=== PATIENT | male | born 1960 | race Caucasian/White ===

== ENCOUNTER → 2019-08-07 | Outpatient (CLI) | payer BC ==
[~2019-08-07] MED LIST: AMARYL1 MG PO; AMOXICILLIN 8751 TAB PO; BACTRIM DS 8001 TAB PO; CETIRIZINE; FLAGYL500 MG PO; MOTRIN800 MG PO; NORCO 325 MG-51 TAB PO; PERCOCET 325 MG1 TA2 PO; TYLENOL 325MG325 MG PO; ZYVOX 600MG600 MG PO
== END ==
LOC: COL.RAD 08-06 08:15
DX: M51.16 Intervertebral disc disorders with radiculopathy, lumbar region (principal); M47.27 Other spondylosis with radiculopathy, lumbosacral region; M43.17 Spondylolisthesis, lumbosacral region; M46.86 Other specified inflammatory spondylopathies, lumbar region; M48.061 Spinal stenosis, lumbar region without neurogenic claudication

== ENCOUNTER → 2019-08-14 | Outpatient (CLI) | payer BC ==
[~2019-08-14] MED LIST changes: +COZAAR100 MG PO; +HYZAAR 25 MG-101 TAB PO; +MUCINEX D 12001 TER PO
[2019-08-14 12:18] VITALS: BP 129/83; PULSE 102
[2019-08-14 13:10] VITALS: BP 141/83; PULSE 94
--- NOTE | 2019-08-14 13:30 | NUR ---
pt states no pain or numbness. we went over dc information and pt verbalized understanding. given a copy of same. taken to [facility] in wheelchair.
== END ==
LOC: COL.RAD 11:45
DX: M51.26 Other intervertebral disc displacement, lumbar region (principal)
CPT/HCPCS: J3301

== ENCOUNTER 2019-09-15 16:12 | Emergency (ER) | payer BC ==
[~2019-09-15] VITALS: Ht 190.5 cm; Wt 132.3 kg
[2019-09-15 16:22] VITALS: BP 147/83; TEMP 98.5
[2019-09-15] MEDS ORDERED: JANUVIA50 MG PO (16:55)
[2019-09-15 17:08] LABS: BASO % 0.4 % (0.0-2.0); EOS # 0.1 (0.0-0.7); EOS % 1.8 % (0-4.0); GRAN # 3.7 (1.4-6.5); GRAN % 66.3 % (42.2-75.2); HEMOGLOBIN 10.5 g/dl (13.5-18.0); LYMPH # 1.4 (1.2-3.4); LYMPH % 25.4 % (20.0-51.0); MEAN CELL VOLUME 89 fl (80.0-100.0); MEAN CORPUSCULAR HEMOGLOBIN 29 pg (27.0-31.0); MEAN CORPUSCULAR HGB CONC 33 g/dl (33.0-37.0); MEAN PLATELET VOLUME 9.6 fl (7.4-10.4); MONO # 0.3 (0.1-0.6); MONO % 5.4 % (1.7-9.3); PLATELET COUNT 109 K/mm3 (130-400); RED BLOOD COUNT 3.63 M/mm3 (4.20-5.60); REDCELL DISTRIBUTION WIDTH-CV 14.9 % (11.5-14.5)
[2019-09-15 17:09] LABS: HEMATOCRIT 32.3 % (42.0-52.0)
[2019-09-15 17:13] LABS: INR 1.2 (0.8-3.0); PROTHROMBIN TIME 13.3 SECONDS (9.7-12.8)
[2019-09-15 17:16] LABS: PARTIAL THROMBOPLASTIN TIME 41.7 SECONDS (26.0-37.0)
[2019-09-15 17:21] LABS: ALBUMIN 3.7 gm/dL (3.5-5.0); BILIRUBIN,TOTAL 0.9 mg/dL (0.0-1.0); C-REACTIVE PROTEIN 1.4 mg/dL (0.0-0.9); CALCIUM 8.6 mg/dL (8.4-10.2); CREATININE, serum 1.05 (0.66-1.25); POTASSIUM 4.2 mmol/L (3.4-5.0); TOTAL PROTEIN 6.8 gm/dL (6.4-8.2)
[2019-09-15] MEDS ORDERED: COZAAR100 MG PO (17:55)
[2019-09-15] MEDS ORDERED: ADVIL200 MG PO (17:58)
[2019-09-15] MEDS ORDERED: JANUMET 500 MG-1 TA1 PO (17:58)
[2019-09-15] MEDS ORDERED: HCTZ 25MG TAB25 MG PO (18:02)
[2019-09-15 18:15] VITALS: PULSE 94
== END 2019-09-15 18:16 | disposition home or self-care (01) ==
LOC: COL.ER 16:12
PROVIDERS: Emergency Medicine
DX: R60.0 Localized edema (principal); I10 Essential (primary) hypertension; G89.29 Other chronic pain; M54.9 Dorsalgia, unspecified; Z79.899 Other long term (current) drug therapy

== ENCOUNTER 2020-03-21 19:20 | Emergency (ER) | payer BC ==
[~2020-03-21] VITALS: Ht 190.5 cm; Wt 124.5 kg
[~2020-03-21 19:20] MED LIST changes: +ADVIL200 MG PO; +HCTZ 25MG TAB25 MG PO; +JANUMET 500 MG-1 TA1 PO; +JANUVIA50 MG PO
[2020-03-21 19:44] VITALS: TEMP 97.8
[2020-03-21 20:21] LABS: COLLECTION METHOD CLEAN CATCH
[2020-03-21 20:25] LABS: BASO % 0.3 % (0.0-2.0); EOS # 0.2 (0.0-0.7); EOS % 1.4 % (0-4.0); GRAN # 8.7 (1.4-6.5); GRAN % 74.6 % (42.2-75.2); HEMOGLOBIN 14.2 g/dl (13.5-18.0); LYMPH # 1.9 (1.2-3.4); LYMPH % 16.4 % (20.0-51.0); MEAN CELL VOLUME 88 fl (80.0-100.0); MEAN CORPUSCULAR HEMOGLOBIN 30 pg (27.0-31.0); MEAN CORPUSCULAR HGB CONC 34 g/dl (33.0-37.0); MEAN PLATELET VOLUME 9.2 fl (7.4-10.4); MONO # 0.8 (0.1-0.6); MONO % 6.5 % (1.7-9.3); PLATELET COUNT 144 K/mm3 (130-400); RED BLOOD COUNT 4.76 M/mm3 (4.20-5.60); REDCELL DISTRIBUTION WIDTH-CV 13.9 % (11.5-14.5)
[2020-03-21 20:29] LABS: PH 5 (5-8); SQUAMOUS EPITHELIAL 0-2 /hpf; URINE APPEARANCE Clear; URINE BACTERIA None Seen /hpf; URINE BILIRUBIN Negative (NEGATIVE); URINE BLOOD 2+ (NEGATIVE); URINE COLOR Yellow; URINE GLUCOSE Negative (NEGATIVE); URINE KETONE Negative (NEGATIVE); URINE LEUKOCYTE ESTERASE Negative (NEGATIVE); URINE NITRATE Negative (NEGATIVE); URINE PROTEIN(semi-quant) Negative (NEGATIVE); URINE UROBILINOGEN Negative (NEGATIVE)
[2020-03-21 20:35] LABS: ALBUMIN 4.5 gm/dL (3.5-5.0); BILIRUBIN,TOTAL 1.1 mg/dL (0.0-1.0); CALCIUM 9.5 mg/dL (8.4-10.2); CREATININE, serum 1.49 (0.66-1.25); POTASSIUM 3.8 mmol/L (3.4-5.0); TOTAL PROTEIN 7.7 gm/dL (6.4-8.2)
[2020-03-21] MEDS ORDERED: FLOMAX 0.40.4 MG/CAP PO (22:08)
[2020-03-21] MEDS ORDERED: NAPRELAN500 MG PO (22:08)
[2020-03-21] MEDS ORDERED: ZOFRAN ODT4 MG PO (22:08)
[2020-03-21 23:00] VITALS: BP 152/88; PULSE 100
== END 2020-03-21 23:00 | disposition home or self-care (01) ==
LOC: COL.ER 19:20
PROVIDERS: Emergency Medicine
DX: K59.00 Constipation, unspecified (principal); L02.31 Cutaneous abscess of buttock; M54.5 Low back pain; L03.90 Cellulitis, unspecified; R60.0 Localized edema; I10 Essential (primary) hypertension; E11.9 Type 2 diabetes mellitus without complications; Z88.2 Allergy status to sulfonamides; Z79.84 Long term (current) use of oral hypoglycemic drugs
CPT/HCPCS: J1885; J2405; J7030; Q9967

== ENCOUNTER 2020-06-01 06:05 | Inpatient (IN) | payer BC ==
[2020-06-01] VITALS (10 sets, daily range): BP systolic 108–151; BP diastolic 58–71; PULSE 66–92; TEMP 97.4–98.6
[~2020-06-01] VITALS: Ht 190.5 cm; Wt 130.9 kg
[~2020-06-01 06:05] MED LIST changes: +FLOMAX 0.40.4 MG/CAP PO; +NAPRELAN500 MG PO; +ZOFRAN ODT4 MG PO
[2020-06-01] MEDS ORDERED: HYZAAR 25 MG-101 TAB PO (07:03)
--- NOTE | 2020-06-01 11:22 | NUR ---
Pt doing well since arriving to the floor from PACU. He has no feeling and is not able to move lower extremities. Dressing to his right knee with PORTIA wrap is CDI. Oriented pt to his room as well as room service, pain management and plan of care for the rest of the day. VSS, gave fresh ice water, call light within reach, will continue to monitor.
--- NOTE | 2020-06-01 12:59 | NUR ---
Pt doing well. He is tolerated regular food with no complaints. He is able to slightly move his lower extremities but has no feeling of pain. VSS will continue to monitor
--- NOTE | 2020-06-01 15:46 | NUR ---
Pt resting with eyes closed even non labored breathing
--- NOTE | 2020-06-01 16:41 | NUR ---
Pt woke up having complaints of pain in his right knee. Reports it at a 10/10, pain medication given at this time. Pt does fall back asleep, but wakes easily. Call light within reach, will continue to monitor
--- NOTE | 2020-06-01 21:36 | NUR ---
Patient up to walk halls. Walked about 20 feet with gait belt, walker, and assistance of one. Patient complained of pain with walking. Patient then settled back in bed. Dressing on right knee clean, dry, and intact. Teds on lower left extremity and SCDs on bilateral lower extremities. Fluids infusing to left hand 75 mls/hr.
--- NOTE | 2020-06-01 23:18 | NUR ---
Patient up to use the bathroom. Voided on his own with some difficulty.
[2020-06-02 01:38] VITALS: BP 142/76; PULSE 82; TEMP 98.2
[2020-06-02 04:52] VITALS: BP 133/72; PULSE 81; TEMP 98.5
--- NOTE | 2020-06-02 05:50 | NUR ---
Patient slept throughout the night with CPAP on. 10 mg oxycodone given this morning for pain. Dressing on right knee clean, dry, and intact. Patient has no other needs at this time. Call light in reach.
--- NOTE | 2020-06-02 07:00 | NUR ---
Pt resting in bed. up to bathroom, difficulty initiating voiding. alert and oriented. Peripheral line to left hand no signs of swelling or redness. VERENA hose on left leg. SCDs on both legs. Nick wrap to right knee CDI. CMS BLE within norml limits.
--- NOTE | 2020-06-02 07:30 | NUR ---
Aquacell dressing applied to right knee. Incision intact. No drainage or warmth noted.
[2020-06-02 07:38] LABS: HEMATOCRIT 31.7 % (42.0-52.0)
--- NOTE | 2020-06-02 07:45 | NUR ---
Pt doing well this morning. He did have complaints of pain to the lateral side of his right knee. PA in to see patient. Dressing removed. Incision is well approximated with no drainage. Aquacel applied. Pt has been up and ambulated to the restroom. Did well with standby to one assist. PO pain medication given. Dinah BERNAL working with pt
--- NOTE | 2020-06-02 10:11 | NUR ---
Initial visit; Patient in a great deal of pain and thanked Disc Pad Grinder for offering encouragement and blessings. Disc Pad Grinder will keep him in her prayers.
[2020-06-02 11:00] VITALS: BP 140/71; PULSE 89; TEMP 97.6
--- NOTE | 2020-06-02 13:48 | NUR ---
Pt resting in bed with his eyes closed, even non labored breathing. Woke pt upon entering. Pt reports pain is still 7-8/10. Reports oral pain medication is not working. Ice pack to right knee.
--- NOTE | 2020-06-02 14:47 | NUR ---
Electronic Data Interchange Specialist met with patient to discuss discharge planning. Patient lives in [place] with his brother, Clay (ph#[phone]). Patient sees Dr. Bales for primary care and obtains medications from [facility] with no difficulties. Patient has a front wheeled walker and CPAP. Patient is normally independent with ADLS and plans to return home upon discharge. Patient does not have Advance Directives and is not interested in setting up DPOA-HC at this time. PT/OT recommending home with outpatient PT and family assist. SW will continue to follow as needed.
[2020-06-02 15:13] VITALS: BP 130/65; PULSE 94; TEMP 98.1
[2020-06-02 20:06] VITALS: BP 104/64; PULSE 95; TEMP 99
[2020-06-03 00:03] VITALS: BP 147/75; PULSE 107; TEMP 98.8
[2020-06-03 04:10] VITALS: BP 145/75; PULSE 98; TEMP 97.8
--- NOTE | 2020-06-03 05:03 | NUR ---
Patient did well throughout the shift. Pain controlled with PRN NORCO. Aquacell to right knee clean, dry, and intact. SCDs and teds to bilateral lower extremities. PAtient up with gait belt, walker, and one assist. CPAP worn while sleeping.
[2020-06-03 07:05] VITALS: BP 130/72; PULSE 101; TEMP 98.5
--- NOTE | 2020-06-03 07:05 | NUR ---
Pt sitting in bed. up to bathroom. steady gait. Alert and oriented. INT to left hand. No redness or swelling. Aquacell dressing on right knee CDI. VERENA hose on both legs. SCDs on both legs. CMS BLE within normal limits.
[2020-06-03 10:50] VITALS: BP 122/64; PULSE 99; TEMP 97.9
[2020-06-03] MEDS ORDERED: ASPI325T6 PO (11:05)
[2020-06-03] MEDS ORDERED: NORCO 325 MG-7.1 TAB PO (11:06)
[2020-06-03] MEDS ORDERED: ROXICODONE 55 MG/TAB PO (11:07)
[2020-06-03] MEDS ORDERED: SENOKOT S 50 MG1 TAB PO (11:07)
--- NOTE | 2020-06-03 12:40 | NUR ---
Pt has done well throughout the day. Pain has been managed by oral pain medication. He worked with therapy as scheduled. Dressing to right knee continues to be clean, dry and intact. Pt stated his ride would be here around 2:00. Informed him we would come in to go over discharge instructions and to help him get ready. No other needs verbalized, will continue to monitor
--- NOTE | 2020-06-03 13:46 | NUR ---
Reviewed discharge instructions with pt to include follow up appointment, therapy and medications. Pt verbalized understanding. He stated that his neighbor would be coming to get him, informed to notify nursing when he arrives. INT removed from left hand.
--- NOTE | 2020-06-03 14:30 | NUR ---
Pt escorted out at this time
== END 2020-06-03 14:31 | disposition home or self-care (01) | DRG 470 ==
LOC: SDCO → JCC 06:06 → INPTSU 06:06 → SDCO 07:30 → JCC 10:45 → SDCO 11:00 → JCC 06-03 14:31
PROVIDERS: ADMIT Orthopaedic Surgery
PROC: 0SRC0J9 Replacement of Right Knee Joint with Synthetic Substitute, Cemented, Open Approach (ICD-10-PCS; principal; 2020-06-01 08:00)
DX: M17.11 Unilateral primary osteoarthritis, right knee (principal); I10 Essential (primary) hypertension; G47.33 Obstructive sleep apnea (adult) (pediatric); E11.9 Type 2 diabetes mellitus without complications; Z79.1 Long term (current) use of non-steroidal anti-inflammatories (NSAID); Z88.2 Allergy status to sulfonamides
CPT/HCPCS: A9284; C1713; C1776; J0690; J1885; J2250; J2270; J2370; J2405; J2704; J3010; J7030

== ENCOUNTER 2020-09-19 18:51 | Emergency (ER) | payer OTHER, BC ==
[~2020-09-19] VITALS: Ht 190.5 cm; Wt 127.3 kg
[~2020-09-19 18:51] MED LIST changes: +ASPI325T6 PO; +NORCO 325 MG-7.1 TAB PO; +ROXICODONE 55 MG/TAB PO; +SENOKOT S 50 MG1 TAB PO
[2020-09-19 20:49] VITALS: BP 131/70; PULSE 81; TEMP 97.9
== END 2020-09-19 20:49 | disposition home or self-care (01) ==
LOC: COL.ER 18:51
DX: S86.911A Strain of unspecified muscle(s) and tendon(s) at lower leg level, right leg, initial encounter (principal); I10 Essential (primary) hypertension; Z79.899 Other long term (current) drug therapy; W01.0XXA Fall on same level from slipping, tripping and stumbling without subsequent striking against object, initial encounter

== ENCOUNTER → 2021-04-06 | Outpatient (CLI) | payer BC | LOC: ZCOL.LAB 16:59 | DX: U07.1 COVID-19 (principal) ==

== ENCOUNTER 2022-06-03 08:52 | Day surgery (SDC) | payer BC ==
[~2022-06-03] VITALS: Ht 190.5 cm; Wt 128.8 kg
[2022-06-03 09:04] VITALS: BP 142/86; PULSE 99; TEMP 97.5
[2022-06-03] MEDS ORDERED: XIGDUO10/1000 PO (09:09)
[2022-06-03 11:00] VITALS: BP 113/69; PULSE 88; TEMP 97.5
[2022-06-03 11:15] VITALS: BP 107/64; PULSE 78
[2022-06-03 11:30] VITALS: BP 110/66; PULSE 80
--- NOTE | 2022-06-03 11:35 | NUR ---
1100 RETURNS TO ROOM 5 PER CART. AWAKE, ALERT. RESP UNLABORED. AMBULATES TO RECLINER WITH STAND BY ASSIST. DENIES NAUSEA OR ABD PAIN. VITAL SIGNS OBTAINED. CALL LIGHT AT SIDE. 1110 DISCHARGE INSTRUCTIONS REVIEWED. PATIENT VERBALIZES UNDERSTANDING. COPY PROVIDED IN DISCHARGE FOLDER. 1115 TOLERATES PO WATER AND APPLESAUCE WITHOUT NAUSEA 1123 DR RAMOS HERE TO VISIT WITH PATIENT 1135 DRESSES SELF
== END 2022-06-03 11:38 | disposition home or self-care (01) ==
LOC: SDCO 08:52
DX: K51.911 Ulcerative colitis, unspecified with rectal bleeding (principal); R19.7 Diarrhea, unspecified
CPT/HCPCS: J2704; J7120

== ENCOUNTER 2023-01-10 12:00 | Emergency (ER) | payer SELFPAY ==
[~2023-01-10] VITALS: Ht 188 cm; Wt 116.4 kg
[~2023-01-10 12:00] MED LIST changes: +XIGDUO10/1000 PO
[2023-01-10 12:04] VITALS: TEMP 98
[2023-01-10] MEDS ORDERED: LIALDA 1.2 GM1.2 GM PO (12:16)
[2023-01-10] MEDS ORDERED: MUCINEX DM 30 M1 TE1 (12:17)
[2023-01-10 13:44] VITALS: BP 118/77; PULSE 74
== END 2023-01-10 13:45 | disposition home or self-care (01) ==
LOC: COL.ER 12:00
DX: S06.0X0A Concussion without loss of consciousness, initial encounter (principal); S00.01XA Abrasion of scalp, initial encounter; W18.40XA Slipping, tripping and stumbling without falling, unspecified, initial encounter; Y99.0 Civilian activity done for income or pay